=== PATIENT | male | born 1955 | race Caucasian/White ===

== ENCOUNTER 2020-05-06 11:18 | Observation (INO) | payer BC, OTHER ==
[~2020-05-06] VITALS: Ht 172.7 cm; Wt 71.2 kg
[2020-05-06] MEDS ORDERED: SODIUM CHLORIDE 0.9% 1000ML 1,000 ML IV STA (11:37)
--- NOTE | 2020-05-06 11:42 | Emergency Department Note ---
History of Present Illnes History of Present Illness Chief Complaint: General Medicine Complaints History of Present Illness This is a 64 year old male with cancer below his records here for 1 episode of hemoptysis. Patient states that he gave himself a deep cough and he is coughed up a clot after radiation treatment and was sent here by radiation oncologist. Patient otherwise states that he has baseline shortness of breath, not worsening, denies any other complaints. . Historian: Patient Arrival Mode: Car Additional Treatment ELIGIBILITY WORKER: NONE Onset (how long ago): hour(s) (1) Location: 1 clot, coughed up Quality: coughing Radiation: Reports non-radiation Severity: moderate Onset quality: gradual Duration (how long): day(s) Timing of current episode: constant Progression: unchanged Chronicity: new Context: Reports other (recent treatment) Relieving factors: none Exacerbating factors: none Associated symptoms: Reports denies other symptoms; Denies shortness of breath, Denies syncope Past Medical/Family History Physician Review I have reviewed the patient's past medical and family history. Any updates have been documented here. Past Medical History Recent Fever: No Clinical Suspicion of Infectio: No New/Unexplained Change in Ment: No Past Medical History: Cancer Other Medical History: THOAT/LUNC CANCER Past Surgical History: None Review of Systems Review of Systems Constitutional: Reports no symptoms EENTM: Reports no symptoms Cardiovascular: Reports no symptoms Respiratory: Reports no symptoms Gastrointestinal: Reports no symptoms Genitourinary: Reports no symptoms Musculoskeletal: Reports no symptoms Integumentary: Reports no symptoms Neurological: Reports no symptoms Psychological: Reports no symptoms Endocrine: Reports no symptoms Hematological/Lymphatic: Reports no symptoms Physical Exam Related Data Allergies: Coded Allergies: No Known Allergies (Unverified , 05/06/20) Triage Vital Signs Vital Signs Date Time Temp Pulse Resp B/P (MAP) Pulse Ox O2 Delivery O2 Flow Rate FiO2 05/06/20 11:30 99.0 141 20 119/84 97 Room Air Vital signs reviewed: Yes Physical Exam CONSTITUTIONAL Constitutional: Present well-developed, Present well-nourished HENT HENT: Present normocephalic, Present atraumatic, Present oropharynx clear/moist, Present nose normal HENT L/R: Present left ext ear normal, Present right ext ear normal EYES Eyes: Reports PERRL, Reports conjunctivae normal NECK Neck: Present ROM normal PULMONARY Pulmonary: Present effort normal, Present other (diminished diffusely, no stridor ) CARDIOVASCULAR Cardiovascular: Present regular rhythm, Present heart sounds normal, Present capillary refill normal, Present tachycardia GASTROINTESTINAL Abdominal: Present soft, Present nontender, Present bowel sounds normal GENITOURINARY Genitourinary: Present exam deferred SKIN Skin: Present warm, Present dry MUSCULOSKELETAL Musculoskeletal: Present ROM normal NEUROLOGICAL Neurological: Present alert, Present oriented x 3, Present no gross motor or sensory deficits PSYCHOLOGICAL Psychological: Present mood/affect normal, Present judgement normal Assessment & Plan Medical Decision Making MDM Patient's a 64-year-old male with 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 Patient on exam tachycardic in the 130s, asymptomatic. We'll workup for tachycardia and hemoptysis and discussed with radiation oncologist. Reassessment Reassessment EKG interpreted by me shows normal sinus rhythm, normal axis, normal intervals, sinus tachycardia, no acute ST changes. EKG nondiagnostic. 1600 Pt HR improving, to he admitted to f/u hyperglycemia, new and hemoptysis Assessment & Plan Final Impression: (1) Lung mass (2) Hyperglycemia (3) Hemoptysis Depart Disposition: ADMITTED Last Vital Signs Date Time Temp Pulse Resp B/P (MAP) Pulse Ox O2 Delivery O2 Flow Rate FiO2 05/06/20 11:30 99.0 141 20 119/84 97 Room Air JESSICA KENDRICK MD May 06, 2020 11:42
[2020-05-06 11:50] LABS: BASOPHILS % 0.3 % (0.0-1.0); EOSINOPHILS % 0.2 % (0.0-6.0); HEMATOCRIT 32.1 % (38.2-49.6); HEMOGLOBIN 10.1 g/dL (14.0-18.0); LYMPHOCYTES # (AUTO) 0.5 (1.0-3.2); LYMPHOCYTES % 5.9 % (18.0-39.1); MEAN CORPUSCULAR HEMOGLOBIN 27.6 pg (28-32); MEAN CORPUSCULAR HGB CONC 31.5 g/dL (31-35); MEAN CORPUSCULAR VOLUME 87.7 fL (81-99); MONOCYTES # (AUTO) 0.4 (0.2-0.8); NEUTROPHILS # (AUTO) 8.1 (2.1-6.9); NEUTROPHILS % 89.1 % (38.7-80.0); PLATELET COUNT 113 x10e3/uL (140-360); RED BLOOD COUNT 3.66 x10e6/uL (4.3-5.7)
[2020-05-06 12:03] LABS: INR 1.07; PROTHROMBIN TIME 14.5 seconds (11.9-14.5)
[2020-05-06 12:14] LABS: ALANINE AMINOTRANSFERASE 28 IU/L (0-55); ALBUMIN 2.4 g/dL (3.5-5.0); ALBUMIN/GLOBULIN RATIO 0.4 (0.8-2.0); ALKALINE PHOSPHATASE 79 IU/L (40-150); ANION GAP 13.6 mmol/L (8-16); BLOOD UREA NITROGEN 9 mg/dL (7-26); BUN/CREATININE RATIO 9 (6-25); CALCIUM 9.1 mg/dL (8.4-10.2); CARBON DIOXIDE 23 mmol/L (22-29); CHLORIDE 94 mmol/L (98-107); CREATINE KINASE 17 IU/L (30-200); CREATININE, SERUM 1.05 mg/dL (0.72-1.25); EST GLOMERULAR FILTRATION RATE > 60 ML/MIN (60-); POTASSIUM 3.6 mmol/L (3.5-5.1); SODIUM 127 mmol/L (136-145)
[2020-05-06 12:18] LABS: GLUCOSE 480 mg/dL (74-118)
[2020-05-06] MEDS ORDERED: SODIUM CHLORIDE 0.9% 1000ML 1,000 ML ONE (12:43)
[2020-05-06] MEDS ORDERED: LACTATED RINGER'S 1,000 ML INJ ONE (12:45)
--- NOTE | 2020-05-06 13:03 | Diagnostic Imaging Report ---
X-ray chest frontal view History: Coughing blood up after chemotherapy. History of lung carcinoma. Comparison: None Findings: Lines and tubes: Not applicable Central airways: Right bronchus is cut off shortly after the tracheal bifurcation. Cardiac silhouette: Unremarkable Mediastinal silhouettes: Ectatic atherosclerotic aorta. Right paratracheal wide bandlike opacity. Could represent right paratracheal mass or bulky adenopathy. Pleura: No pleural effusion, pneumothorax or thickening Diaphragms: Unremarkable Lungs: Diffuse opacity in the right upper lung. This has features of airspace disease. This could represent pneumonia, possibly atelectasis or aspiration. Right lower lobe wedge-shaped opacity representing atelectasis likely in the right middle lobe. Skeletal structures: Unremarkable Extrathoracic soft tissues: Unremarkable. Right IJ route Port-A-Cath catheter is looped up in the neck and the tip overlies the right innominate vein. Impression: Right upper lobe pulmonary opacity with differential as described above along with a right paratracheal mass or bulky lymphadenopathy. The right mainstem bronchus is possibly obstructed. There is discoid atelectasis in the right lower lung. Right IJ port catheter looped up in the neck. The findings are consistent with the history of lung cancer. Correlation with the prior imaging is recommended. Signed by: Andrew Lomeli MD on 05/06/2020 1:00 PM
[2020-05-06] MEDS ORDERED: SODIUM CHLORIDE 0.9% 50ML 50 ML ONE (14:03)
[2020-05-06] MEDS ORDERED: IOPAMIDOL 370 MG/ML 200 ML INFUS..BTL INJ ONE (14:04)
--- NOTE | 2020-05-06 14:48 | Diagnostic Imaging Report ---
CT SOFT TISSUE NECK W HISTORY: Hemoptysis; history of long/throat cancer COMPARISON: None. TECHNIQUE: Axial CT images were obtained through the neck with intravenous, iodine based contrast. Coronal and sagittal reconstructions obtained from the axial data. One or more of the following dose reduction techniques were used: Automated exposure control, adjustment of the mA and/or kV according to patient size, and/or utilization of iterative reconstruction technique. DISCUSSION: Approximately 2.3 cm mucosal mass along the right anterior supraglottic larynx (involving the right false vocal cord) invades the paraglottic fat and abuts the bilateral anterior thyroid cartilage, right greater than left. The visualized upper aerodigestive tract is otherwise unremarkable. No radiographically significant cervical adenopathy is seen. The thyroid gland is unremarkable. The submandibular and parotid glands are unremarkable. Right IJ chest port catheter loops once in the lower right internal jugular vein and terminates in the superior vena cava. The major cervical vessels are otherwise unremarkable. The body maker machine setter, parapharyngeal, posterior cervical, and perivertebral spaces are unremarkable. The visualized intracranial compartment and orbits are grossly unremarkable. Mild right maxillary sinus mucosal thickening is present. There are mild to moderate degenerative changes throughout the spine. Cavitary consolidation in the right upper lobe with surrounding groundglass and reticular opacities is partially imaged. Associated necrotic lower right paratracheal lymphadenopathy is partially imaged. Coarse calcification in the right paratracheal region may be related to remote granulomatous disease. IMPRESSION: 1. Partially imaged right upper lobe cavitary consolidation with surrounding groundglass and reticular opacities and necrotic lower right paratracheal lymphadenopathy. Please refer to concurrent chest CT. 2. Approximately 2.3 cm right anterior supraglottic laryngeal mucosal mass could be a squamous cell carcinoma. 3. No radiographically significant cervical adenopathy. Signed by: Dr. Abhijit Ryan M.D. on 05/06/2020 2:45 PM
--- NOTE | 2020-05-06 15:38 | Diagnostic Imaging Report ---
EXAM: CT CHEST WITH CONTRAST CLINICAL INDICATION: Hemoptysis TECHNIQUE: CT chest was performed, following the administration of intravenous contrast, as per department protocol. Axial, sagittal, and coronal reconstructions were obtained. IV CONTRAST:100 cc of Isovue-300 RADIATION DOSE REDUCTION: This exam was performed according to the departmental dose-optimization program which includes automated exposure control, adjustment of the mA and/or kV according to patient size and/or use of iterative reconstruction technique. COMPARISON: None FINDINGS: LOWER NECK: No pathologic process in imaged portion of lower neck. PULMONARY PARENCHYMA AND AIRWAYS: There is obstruction of the right upper lobe and right middle lobe bronchus by a soft tissue mass. There is extensive airspace consolidation, interstitial thickening, cavitation with air soft tissue level in the right upper lobe with only a small part of the aerated right upper lobe also showing groundglass opacification. The upper lobe pulmonary vessels are seen to drape around the cavitary area which is epicentered on the apical posterior segment. There is also presence of right paratracheal soft tissue thickening that extends into subcarinal and precarinal soft tissue thickening on both sides of the midline and is most consistent with mediastinal lymphadenopathy. One right paratracheal and 1 subcarinal lymph node that is a part of this conglomerate has calcium within it. This focus might be telecommunications sales representative of additional previous granulomatous disease. The soft tissue encases the upper lobe, right middle lobe pulmonary arteries and right upper pulmonary vein. Cranially, at the apex of the right lung this process is adjacent to if not encasing the right subclavian artery. There is volume loss of the right middle lobe with patches of airspace consolidation and groundglass opacities in the right middle lobe. The left lobe is unremarkable MEDIASTINUM AND HERON: As above. The left pulmonary hilum is unremarkable. HEART AND PERICARDIUM: Heart normal size. No pericardial fluid or thickening. THORACIC VESSELS: Atherosclerotic calcification of the thoracic aorta. There is presence of mural thrombus in the distal descending thoracic aorta. There is presence of a mural thrombus in the proximal abdominal aorta. PLEURAL SPACES: No pleural fluid, pleural thickening or pneumothorax. CHEST WALL AND AXILLA: No pathologic process. UPPER ABDOMEN: No pathologic process in imaged portion of upper abdomen. MUSCULOSKELETAL: Degenerative changes but no lytic or blastic lesions. ADDITIONAL FINDINGS: Right chest wall Port-A-Cath IMPRESSION: Markedly abnormal right lung especially the upper and middle lobes with suspected obstructing right bronchial lesion with right paratracheal and subcarinal mediastinal lymphadenopathy. Please see above for details. Standardized Report: [id number]. Signed by: Andrew Lomeli MD on 05/06/2020 3:35 PM
--- OUTSIDE RECORDS SUMMARY | 2020-05-06 16:07 | XMS REPORT | Continuity of Care Document ---
Author Author [facility] t Organization [facility] Address [address] [place] [address] Dr. Cardenas [address] [place] [phone] Phone Unavailable Care Team Providers Care Sampler First Name Role Phone Lefty KENDRICK Attmarbella Unavailable Problems This patient has no known problems. Allergies, Adverse Reactions, Alerts This patient has no known allergies or adverse reactions. Medications This patient has no known medications. Procedures This patient has no known procedures. Encounters Start Date/Time End Date/Time Encounter Type Admission Type [facility] Care Department Encounter ID Source 2018-02-15 00:00:00 2018-02-22 00:00:00 Outpatient [facility] [id number] [facility] Office Results Test Description Test Time Test Comments Results Result Comments Source CT CHEST W 2020-05-06 15:12:00 [facility] 1955 Sex: M [facility] [address], [place] [address] Patient Name: EDIL KENYON MR #: [id number] : 1955 Age/Sex: 64/M Req #: [id number] Adm Physician: Ordered by: JESSICA KENDRICK MD Report #: [id number] Location: ER Room/Bed: Procedure: [id number] CT/CT CHEST W Exam Date: 05/06/20 Exam Time: 1400 REPORT STATUS: Signed EXAM: CT CHEST WITH CONTRAST CLINICAL INDICATION: Hemoptysis TECHNIQUE: CT chest was performed, following the administration of intravenous contrast, as per department protocol. Axial, sagittal, and coronal reconstructions were obtained. IV CONTRAST:100 cc of Isovue-300 RADIATION DOSE REDUCTION: This exam was performed according to the departmental dose-optimization program which includes automated exposure control, adjustment of the mA and/or kV according to patient size and/or use of iterative reconstruction technique. COMPARISON: None FINDINGS: LOWER NECK: No pathologic process in imaged portion of lower neck. PULMONARY PARENCHYMA AND AIRWAYS: There is obstruction of the right upper lobe and right middle lobe bronchus by a soft tissue mass. There is extensive airspace consolidation, interstitial thickening, cavitation with air soft tissue level in the right upper lobe with only a small part of the aerated right upper lobe also showing groundglass opacification. The upper lo be pulmonary vessels are seen to drape around the cavitary area which is epicentered on the apical posterior segment. There is also presence of right paratracheal soft tissue thickening that extends into subcarinal and precarinal soft tissue thickening on both sides of the midline and is most consistent with mediastinal lymphadenopathy. One right paratracheal and 1 subcarinal lymph node that is a part of this conglomerate has calcium within it. This focus might be medical office representative of additional previous granulomatous disease. The soft tissue encases the upper lobe, right middle lobe pulmonary arteries and right upper pulmonary vein. Cranially, at the apex of the right lung this process is adjacent to if not encasing the right subclavian artery. There is volume loss of the right middle lobe with patches of airspace consolidation and groundglass opacities in the right middle lobe. The left lobe is unremarkable MEDIASTINUM AND HERON: As above. The left pulmonary hilum is unremarkable. HEART AND PERICARDIUM: Heart normal size. No pericardial fluid or thickening. THORACIC VESSELS: Atherosclerotic calcification of the thoracic aorta. There is presence of mural thrombus in the distal descending thoracic aorta. There is presence of a mural thrombus in the proximal abdominal aorta. PLEURAL SPACES: No pleural fluid, pleural thickening or pneumothorax. CHEST WALL AND AXILLA: No pathologic process. UPPER ABDOMEN: No pathologic process in imaged portion of upper abdomen. MUSCULOSKELETAL: Degenerative changes but no lytic or blastic lesions. ADDITIONAL FINDINGS: Right chest wall Port-A-Cath IMPRESSION: Markedly abnormal right lung especially the upper and middle lobes with suspected obstructing right bronchial lesion with right paratracheal and subcarinal mediastinal lymphadenopathy. Please see above for details. Standardized Report: [id number]. Signed by: Ramo Bonilla MD on 05/06/2020 3:35 PM Dictated By: RAMO BONILLA MD 1535 Transcribed By: RENEE on 05/06/20 1535 COPY TO: JESSICA KENDRICK MD CT SOFT TISSUE NECK W 2020-05-06 14:31:00 [facility] 1955 Sex: M [place] [address] Patient Name: EDIL KENYON MR #: [id number] : 1955 Age/Sex: 64/M Req #: [id number] Adm Physician: Ordered by: JESSICA KENDRICK MD Report #: [id number] Location: Room/Bed: Procedure: [id number] CT/CT SOFT TISSUE NECK W Exam Date: 05/06/20 Exam Time: 1400 REPORT STATUS: Signed CT SOFT TISSUE NECK W HISTORY: H emoptysis; history of long/throat cancer COMPARISON: None. TECHNIQUE: Axial CT images were obtained through the neck with intravenous, iodine based contrast. Coronal and sagittal reconstructions obtained from the axial data. One or more of the following dose reduction techniques were used: Automated exposure control, adjustment of the mA and/or kV according to patient size, an d/or utilization of iterative reconstruction technique. DISCUSSION: Approximately 2.3 cm mucosal mass along the right anterior supraglottic larynx (involving the right false vocal cord) invades the paraglottic fat and abuts the bilateral anterior thyroid cartilage, right greater than left. The visualized upper aerodigestive tract is otherwise unremarkable. No radiographically significant cervical adenopathy is seen. The thyroid gland is unremarkable. The submandibular and parotid glands are unremarkable. Right IJ chest port catheter loops once in the lower right internal jugular vein and terminates in the superior vena cava. The major cervical vessels are otherwise unremarkable. The paper tube grader, parapharyngeal, posterior cervical, and perivertebral spaces are unremarkable. The visualized intracranial compartment and orbits are grossly unremarkable. Mild right maxillary sinus mucosal thickening is present. There are mild to moderate degenerative changes throughout the spine. Cavitary consolidation in the right upper lobe with surrounding groundglass and reticular opacities is partially imaged. Associated necrotic lower right paratracheal lymphadenopathy is partially imaged. Coarse calcification in the right paratracheal region may be related to remote granulomatous disease. IMPRESSION: 1. Partially imaged right upper lobe cavitary consolidation with surrounding groundglass and reticular opacities and necrotic lower right paratracheal lymphadenopathy. Please refer to concurrent chest CT. 2. Approximately 2.3 cm right anterior supraglottic laryngeal mucosal mass could be a squamous cell carcinoma. 3. No radiographically significant cervical adenopathy. Signed by: Dr. Abhijit Ryan M.D. on 05/06/2020 2:45 PM Dictated By: ABHIJIT RYAN MD 44 Transcribed By: RENEE on 05/06/201444 COPY TO: JESSICA KENDRICK MD CHEST SINGLE (PORTABLE) 2020-05-06 12:55:00 [facility] 1955 Sex: M [facility] [address] [place] [address] Patient Name: EDIL KENYON MR #: [id number] : 1955 Age/Sex: 64/M Req #: [id number] Adm Physician: Ordered by: JESSICA KENDRICK MD Report #: [id number] Location: ER Room/Bed: Procedure: [id number] DX/CHEST SINGLE (PORTABLE) Exam Date: 05/06/20 Exam Time: 1200 REPORT STATUS: Signed X-ray chest frontal view His tory: Coughing blood up after chemotherapy. History of lung carcinoma. Comparison: None Findings: Lines and tubes: Not applicable Central airways: Right bronchus is cut off shortly after the tracheal bifurcation. Cardiac silhouette: Unremarkable Mediastinal silhouettes: Ectatic atherosclerotic aorta. Right paratracheal wide bandlike opacity. Could represent right paratracheal mass or bulky adenopathy. Pleura: No pleural effusion, pneumothorax or thickening Diaphragms: Unremarkable Lungs: Diffuse opacity in the right upper lung. This has features of airspace disease. This could represent pneumonia, possibly atelectasis or aspiration. Right lower lobe wedge-shaped opacity representing atelectasis likely in the right middle lobe. Skeletal structures: Unremarkable Extrathoracic soft tissues: Unremarkable. Right IJ route Port-A-Cath catheter is looped up in the neck and the tip overlies the right innominate vein. Impression: Right upper lobe pulmonary opacity with differential as described above along with a right paratracheal mass or bulky lymphadenopathy. The right mainstem bronchus is possibly obstructed. There is discoid atelectasis in the right lower lung. Right IJ port catheter looped up in the neck. The findings are consistent with the history of lung cancer. Correlation with the prior imaging is recommended. Signed by: Ramo Bonilla MD on 05/06/2020 1:00 PM Dictated By: RAMO BONILLA MD 1300 Transcribed By: RENEE on 05/06/20 1300 COPY TO: JESSICA KENDRICK MD
[2020-05-06 17:35] VITALS: BP 106/75
--- NOTE | 2020-05-06 17:35 | NUR ---
PATIENT RECEIVED FROM ER PER STRETCHER. ALERT , VERBALLY RESPONSIVE AND AMBULATORY. TRANSFERRED SELF FROM STRETCHER TO CHAIR. SITTING UP EATING DINNER, NO DIFFICULTY SWALLOWING NOTED. SKIN WARM AND DRY TO TOUCH, RESPIRATION EVEN AND UNLABORED, ABDOMEN SOFT AND NON DISTENDED. PATIENT ORIENTED TO SURROUNDINGS. CALL LIGHT AT EASY REACH. INSTRUCTED TO CALL FOR ASSISTANCE NEEDED.
--- NOTE | 2020-05-06 19:09 | NUR ---
BEDSIDE SHIFT REPORT GIVEN TO ON COMING NURSE. PATIENT IN BED WITH CALL LIGHT AT REACH.
[2020-05-06 20:00] VITALS: BP 99/66
[2020-05-06 20:50] VITALS: BP 99/66
[2020-05-07] VITALS (7 sets, daily range): BP systolic 86–108; BP diastolic 60–74
[2020-05-07 06:19] LABS: BASOPHILS % 0.4 % (0.0-1.0); EOSINOPHILS # (AUTO) 0.1 (0.0-0.4); EOSINOPHILS % 1.5 % (0.0-6.0); HEMATOCRIT 27.6 % (38.2-49.6); HEMOGLOBIN 8.8 g/dL (14.0-18.0); LYMPHOCYTES # (AUTO) 0.7 (1.0-3.2); LYMPHOCYTES % 9.8 % (18.0-39.1); MEAN CORPUSCULAR HEMOGLOBIN 28.2 pg (28-32); MEAN CORPUSCULAR HGB CONC 31.9 g/dL (31-35); MEAN CORPUSCULAR VOLUME 88.5 fL (81-99); MONOCYTES # (AUTO) 0.4 (0.2-0.8); MONOCYTES % 6.2 % (4.4-11.3); NEUTROPHILS # (AUTO) 5.8 (2.1-6.9); NEUTROPHILS % 81.5 % (38.7-80.0); PLATELET COUNT 88 x10e3/uL (140-360); RED BLOOD COUNT 3.12 x10e6/uL (4.3-5.7); RED CELL DISTRIBUTION WIDTH 14.8 % (11.7-14.4)
--- NOTE | 2020-05-07 07:14 | NUR ---
PATIENT IN BED RESTING WITH EYES CLOSED, NO DISTRESS NOTED. ALL PERSONAL ITEMS CLOSE TO PATIENT. CALL LIGHT AT REACH.
[2020-05-07] MEDS ORDERED: ONDANSETRON HCL INJ 2MG/ML 2ML 2 MG/ML VIAL IV PRN (08:45)
[2020-05-07] MEDS ORDERED: ACETAMINOPHEN 325 MG TAB PO PRN (08:45)
--- NOTE | 2020-05-07 10:04 | Consultation ---
DATE OF CONSULTATION: 05/07/2020 PULMONARY CRITICAL CARE CONSULTATION: CHIEF COMPLAINT: Hemoptysis. HISTORY OF PRESENT ILLNESS: The patient is a 64-year-old man. He was diagnosed with lung cancers several months ago. He has received several chemotherapy treatments as well as several radiation treatments. He completed radiation treatment yesterday. After the treatment, he had one episode of hemoptysis. He coughed up a quarter-sized piece of blood. He has had no further hemoptysis. He denies fever or chest pains. He is not having any nausea or vomiting. PAST MEDICAL HISTORY: 1. Lung cancer as noted above. 2. Laryngeal cancer. PAST SURGICAL HISTORY: Noncontributory. FAMILY HISTORY: Noncontributory. ALLERGIES: NO KNOWN DRUG ALLERGIES. REVIEW OF SYSTEMS: The patient denies any headache. There is no fever. He is not having any neck pain. He denies chest pain. He did have some hemoptysis yesterday as noted above. He does not have dyspnea. He has no abdominal pain. He has no nausea or vomiting. He has no leg edema. PHYSICAL EXAMINATION: VITAL SIGNS: The blood pressure is 91/69, saturation is 97% on room air and the pulse is 92. HEENT: Shows no facial swelling or erythema. LYMPHATIC: Shows no submandibular, cervical, or supraclavicular adenopathy. CARDIAC: Reveals regular rate and rhythm. Normal S1, S2. LUNGS: Auscultation of lungs reveals decreased breath sounds at the bases. There is no wheezing. ABDOMEN: Soft, nontender. There is no rebound or guarding. EXTREMITIES: Shows no leg edema or calf tenderness. There is no cyanosis or clubbing. SKIN: Shows no rashes. NEUROLOGICAL: Shows no focal abnormalities. LABORATORY DATA: White blood cell count is 7.15, hemoglobin is 8.8, the platelet count is 88. BUN to creatinine ratio is 9 and 1.25 and the sodium is 127. Other electrolytes are within normal limits. Lactic acid is 1. RADIOGRAPHIC DATA: Chest CT shows right lung abnormalities including some partial atelectasis of the right upper lobe and right middle lobe. There is some paratracheal mediastinal adenopathy. IMPRESSION: 1. Hemoptysis secondary to bronchogenic carcinoma. 2. Bronchogenic carcinoma. 3. Anemia secondary to chronic blood loss. 4. Thrombocytopenia. PLAN: 1. Provided the patient has no further hemoptysis, any invasive intervention is not required at this time. 2. Continue to monitor blood counts. Give Neupogen, red blood cells as needed. 3. The patient can be discharged home and can follow up with Oncology. MD LEVY Lloyd/TERRELL /[id number]
--- NOTE | 2020-05-07 11:18 | NUR ---
PATIENT C/O HEADACHE, ACCESSIONER NOTIFIED. NEW ORDER RECEIVED AND IMPLEMENTED. NO MORE C/O HEADACHE. WILL CLOSELY MONITOR.
[2020-05-07] MEDS ORDERED: ACETAMINOPHEN325 M1 PO (13:21)
--- NOTE | 2020-05-07 16:20 | NUR ---
PATIENT DISCHARGED HOME. DISCHARGE INSTRUCTIONS, PRESCRIPTIONS, AND FOLLOW UP GIVEN TO PATIENT. HE VERBALIZED UNDERSTANDING. IV TO RIGHT AC REMOVED WITH TIP INTACT. ALL PERSONAL ITEMS TAKEN WITH PATIENT. LEFT UNIT PER WHEEL CHAIR TO FRONT LOBBY IN STABLE CONDITION.
--- NOTE | 2020-05-07 19:22 | History and Physical ---
SHORTSTAY: CONSULTING PHYSICIANS: Sherman Goldberg M.D. and Dr. Rick Tolentino. Dr. Sherman Goldberg with Pulmonology/Critical Care Medicine. Dr. Tolentino with Hematology/Oncology. PRIMARY CARE PHYSICIAN: Seymour Hernandez D.O. CHIEF COMPLAINT: Coughed up a clot. HISTORY OF PRESENT ILLNESS: The patient is a 64-year-old male with known lung cancer, who completed radiation treatment on 05/06, after which he coughed up a quarter-sized amount of blood. He has had no further hemoptysis since then and was sent here by the radiation oncologist. He was diagnosed with lung cancer about 2 months ago. The patient describes this is a very strong onetime cough and he has had no further bleeding since then. He had a very severe headache at the time, which is dissipated. He is currently seen in no acute distress in room #284 alone. 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 PAST SURGICAL HISTORY: Lung biopsy, laryngeal biopsy, bone graft from the leg, and replaced three vertebrae in 195. FAMILY HISTORY: The patient does not know family history as he was adopted. SOCIAL HISTORY: The patient smoked three packs of cigarettes per day for 30 years, 80 to 90 pack years. He drinks 2 to 6 packs a week. Denies any illicit drug use. ALLERGIES: NO KNOWN ALLERGIES. REVIEW OF SYSTEMS: CONSTITUTIONAL: The patient states that he lost 30 pounds in 2 weeks and has been having sweats a lot. EYES, EARS, NOSE, THROAT: He had earache and throat ache prior to going to the doctor to discover the cancer, however, this has cleared up. RESPIRATORY: Shortness of breath, cough, and mild dyspnea on exertion. GENITOURINARY: Denies difficulty urinating. PSYCHIATRIC: No psychiatric history. INTEGUMENTARY: No skin problems. CARDIOVASCULAR: Denies chest pain or palpitations. GASTROINTESTINAL: No nausea, vomiting, or diarrhea. He has had some constipation due to the chemotherapy, which is clearing. Last bowel movement is today. MUSCULOSKELETAL: Denies any pain, any muscle spasms. NEUROLOGIC: Complained of headache this morning. Tylenol was effective for that. ENDOCRINE: Denies any history of diabetes. HEMATOLOGIC/LYMPHATIC: No other bleeding. PHYSICAL EXAMINATION: VITAL SIGNS: Temperature 97.6, pulse 90, blood pressure 97/74, prior to that 86/63, respirations 24, oxygen saturation 97%. Height 5 feet 8 inches, weight 157 pounds, BMI 23.86. GENERAL: Supine, in no acute distress. LUNGS: Diminished in the bases. HEENT: EOMI. Oropharynx clear. NECK: Supple. No lymphadenopathy, thyromegaly, or JVD. CARDIOVASCULAR: Regular rate and rhythm. No murmur. ABDOMEN: Bowel sounds positive. Soft, nontender. EXTREMITIES: No pitting edema. No clubbing, cyanosis, or signs of DVT. NEUROLOGIC: GCS 15. Nonfocal. LABORATORY DATA: WBCs 7.15, hemoglobin 8.8, hematocrit 27.6, platelets 88, neutrophils 81.5%. PT 14.5, INR 1.07. D-dimer 3.07. Sodium 127, potassium 3.6, chloride 194, CO2 of 23, anion gap 13.6, BUN 9, creatinine 1.05, estimated GFR greater than 60, glucose 480, lactic acid 2.5 then subsequently 1.0, calcium 9.1, total bilirubin 0.3, AST 11, ALT 28, alkaline phosphatase 79. Creatine kinase 17, CK-MB 0.7, troponin-I 0.003. Total protein 7.9, albumin 2.4, globulin 5.5. TSH 0.626. Serology; coronavirus PCR collected on 05/06, remains pending. IMAGING DATA: Chest x-ray per radiologist showed right upper lobe pulmonary opacity along with right paratracheal mass or bulky lymphadenopathy. Right mainstem bronchus possibly obstructed. There is discoid atelectasis in the right lower lung. Right IJ port catheter looped up in the neck. Findings consistent with a history of lung cancer. CT of the chest showed markedly abnormal right lung, especially the right upper and middle lobes with suspected obstructing right bronchial lesion with right paratracheal in subcarinal mediastinal lymphadenopathy. CT of the soft tissue of the neck showed partially imaged right upper lobe cavitary consolidation with surrounding ground-glass and reticular opacities and necrotic lower right paratracheal lymphadenopathy, approximately 2.3 cm right anterior supraglottic laryngeal mucosal mass, could be a squamous cell carcinoma. No radiographically significant cervical adenopathy. ASSESSMENT/PLAN: 1. Hemoptysis secondary to bronchogenic carcinoma. The patient has been monitored for over 24 hours and is not having any further hemoptysis. The patient did not cough during my entire encounter. He has been seen by a Pulmonology/Critical Care Medicine and improved for discharge home. The patient is to follow up with his PCP as well as his Hematology/Oncology physician. 2. Bronchogenic carcinoma with recent radiation and chemotherapy. 3. Anemia due to chronic blood loss. Hemoglobin 8.8, hematocrit 27.6. 4. Thrombocytopenia, platelet counts 88,000. This will need to follow up by his oncologist. 5. Hyperglycemia, likely due to steroids. Glucose level 480. This can be monitored on an outpatient basis. 6. Acute hyponatremia. Sodium level 127. The patient can follow up with PCP. 7. Elevated D-dimer. No PE seen on CT of the chest. 8. Sinus tachycardia, improved. A 12-lead EKG on 05/06 had shown sinus tachycardia with a heart rate of 141, today heart rate 90. 9. Atelectasis right lower lobe. The patient will be sent home with an incentive spirometer. 10. Probable COPD, 90 pack years, history of smoking. Encouraged smoking cessation. The patient can follow up with director business. 11. Prophylaxis, Pepcid. Ambulatory. OBSERVATION STATUS: Billing code #[id number]. Time spent greater than 60 minutes. Dictated by Alex Almanza NP MD MIKI JohnstonP/JEFERSONL /[id number]
== END 2020-05-07 16:18 | disposition home or self-care (01) ==
LOC: ER 11:25 → ERHOLD 15:46 → MED/SURG3 17:18
PROVIDERS: ADMIT Internal Medicine; ATTEND Internal Medicine
DX: C34.90 Malignant neoplasm of unspecified part of unspecified bronchus or lung (principal); D50.0 Iron deficiency anemia secondary to blood loss (chronic); D69.59 Other secondary thrombocytopenia; E87.1 Hypo-osmolality and hyponatremia; R73.9 Hyperglycemia, unspecified; T38.0X5A Adverse effect of glucocorticoids and synthetic analogues, initial encounter; J44.9 Chronic obstructive pulmonary disease, unspecified; Z20.828 Contact with and (suspected) exposure to other viral communicable diseases; Z85.21 Personal history of malignant neoplasm of larynx
CPT/HCPCS: 36415 ×2; 70491; 71045; 71260; 80053; 82550; 82553; 83605; 84443; 84484; 85025 ×2; 85379; 85610; 93005; 99284; G0378 ×2; J7030; Q9967; U0002